=== PATIENT | female | born 1955 | race Caucasian/White ===

== ENCOUNTER 2022-04-02 08:35 | Day surgery (SDC) | payer OTHER ==
[2022-04-02 09:20] VITALS: BMI 21.6
[2022-04-02 10:40] VITALS: PULSE 67; TEMP 97.7
[2022-04-02 11:02] VITALS: BP 109/64; RESP 18
== END 2022-04-02 11:06 | disposition home or self-care (01) ==
LOC: FASU-ENDO 08:35
PROVIDERS: ATTEND Internal Medicine Gastroenterology
PROC: 0DJD8ZZ Inspection of Lower Intestinal Tract, Via Natural or Artificial Opening Endoscopic (ICD-10-PCS; principal; 2022-04-02 10:04)
DX: Z12.11 Encounter for screening for malignant neoplasm of colon (principal); K57.30 Diverticulosis of large intestine without perforation or abscess without bleeding